=== PATIENT | female | born 1930 | race Caucasian/White ===

== ENCOUNTER 2021-04-19 07:20 | Day surgery (SDC) | payer OTHER, SELFPAY, MEDICAID ==
[~2021-04-19] VITALS: Ht 152.4 cm; Wt 69.4 kg
[2021-04-19] MEDS ORDERED: MEPIVACAINE HCL 3% 30 MG/ML CARTRIDGE IJ ONE (08:35)
[2021-04-19] MEDS ORDERED: NS 500 ML IV.SOLN IV ONE (08:35)
[2021-04-19] MEDS ORDERED: NS 100 ML BAG ONE (08:35)
[2021-04-19] MEDS ORDERED: MIDAZOLAM HCL 2 MG/2 ML VIAL (VERSED) ONE (08:35)
[2021-04-19] MEDS ORDERED: ARTICAINE HCL/EPINEPHRINE 4%/1:200,000 BIT 1.7 ML CARTRIDGE IJ ONE (08:35)
[2021-04-19] MEDS ORDERED: NS IRRIG SOLN 1000 ML IR ONE (08:35)
[2021-04-19] MEDS ORDERED: ACETAMINOPHEN 500 MG TABLET PO ONE (11:15)
[2021-04-19 16:07] VITALS: BP_SYST 174
== END 2021-04-19 16:07 | disposition home or self-care (01) ==
LOC: SMU 07:20 → UNDOADMIN 07:20 → SDS 07:20 → EDSTATUS 09:00 → SDS 16:07 → UNDODISIN 16:07
PROVIDERS: ATTEND Dentist General Practice
DX: M27.2 Inflammatory conditions of jaws (principal); M89.8X0 Other specified disorders of bone, multiple sites; M27.9 Disease of jaws, unspecified; M26.603 Bilateral temporomandibular joint disorder, unspecified; R68.84 Jaw pain; K05.223 Aggressive periodontitis, generalized, severe; K08.429 Partial loss of teeth due to periodontal diseases, unspecified class; Z88.5 Allergy status to narcotic agent; Z79.899 Other long term (current) drug therapy; Z20.822 Contact with and (suspected) exposure to COVID-19
CPT/HCPCS: 21215; 21249; 36415; 70140; 87426; C1713 ×2; J3465; J7040

== ENCOUNTER 2021-05-03 11:48 | Day surgery (SDC) | payer OTHER, SELFPAY, MEDICAID ==
[~2021-05-03] VITALS: Ht 152.4 cm; Wt 69.4 kg
[2021-05-03 16:16] VITALS: BP_SYST 170
[2021-05-04] MEDS ORDERED: NS 500 ML IV.SOLN IV ONE (14:30)
[2021-05-04] MEDS ORDERED: MEPIVACAINE HCL 3% 30 MG/ML CARTRIDGE IJ ONE (14:30)
[2021-05-04] MEDS ORDERED: NS IRRIG SOLN 1000 ML IR ONE (14:30)
== END 2021-05-03 15:05 | disposition home or self-care (01) ==
LOC: SDS 11:48 → SMU 11:59 → SDS 15:05
PROVIDERS: ATTEND Dentist General Practice
DX: M27.2 Inflammatory conditions of jaws (principal); M89.8X0 Other specified disorders of bone, multiple sites; M26.603 Bilateral temporomandibular joint disorder, unspecified; K05.223 Aggressive periodontitis, generalized, severe; K08.429 Partial loss of teeth due to periodontal diseases, unspecified class; E07.89 Other specified disorders of thyroid; M81.8 Other osteoporosis without current pathological fracture; Z88.5 Allergy status to narcotic agent; Z79.899 Other long term (current) drug therapy; Z20.822 Contact with and (suspected) exposure to COVID-19
CPT/HCPCS: 21026; 21215; 21248; 36415; 70140; 87426; C1713 ×2; J7040

== ENCOUNTER 2021-07-20 07:34 | Day surgery (SDC) | payer OTHER ==
[~2021-07-20] VITALS: Ht 152.4 cm; Wt 69.4 kg
[2021-07-20] MEDS ORDERED: NS IRRIG SOLN 1000 ML IR ONE (09:00)
[2021-07-20] MEDS ORDERED: MEPIVACAINE HCL 3% 30 MG/ML CARTRIDGE IJ ONE (09:00)
[2021-07-20] MEDS ORDERED: NS 250 ML IV.SOLN IV ONE (09:00)
[2021-07-20] MEDS ORDERED: ARTICAINE HCL/EPINEPHRINE 4%/1:200,000 BIT 1.7 ML CARTRIDGE IJ ONE (09:00)
[2021-07-20] MEDS ORDERED: BENZOCAINE 20% GEL 32 GM BOTTLE MM ONE (09:00)
[2021-07-20 17:48] VITALS: BP_SYST 125
== END 2021-07-20 11:00 | disposition home or self-care (01) ==
LOC: SDS 07:34
PROVIDERS: ATTEND Dentist General Practice
DX: M27.2 Inflammatory conditions of jaws (principal); E03.9 Hypothyroidism, unspecified; E78.5 Hyperlipidemia, unspecified; I10 Essential (primary) hypertension; K05.6 Periodontal disease, unspecified; N32.81 Overactive bladder; Z79.899 Other long term (current) drug therapy; Z90.49 Acquired absence of other specified parts of digestive tract; Z90.710 Acquired absence of both cervix and uterus; Z20.822 Contact with and (suspected) exposure to COVID-19
CPT/HCPCS: 21025; 21215; 21248; 36415; 41826; 70140; 87426; C1713; J7050